=== PATIENT | male | born 1935 | race African-American/Black ===

== ENCOUNTER 2020-05-18 06:16 | Inpatient (IN) | payer MEDICARE, OTHER ==
[~2020-05-18] VITALS: Ht 182.9 cm; Wt 56.6 kg
[2020-05-18 07:43] LABS: Basophils # (auto) 0 10 ^3/uL (0-0.2); Basophils % (auto) 0.4 % (0.0-2.0); Eosinophils # (auto) 0.1 10 ^3/uL (0-0.8); Eosinophils % (auto) 0.6 % (0.0-7.0); Hematocrit 34.6 % (41.0-53.0); Hemoglobin 11.2 g/dL (13.5-17.5); Lymphocytes # (auto) 1.6 10 ^3/uL (0.4-5.4); Mean Corpuscular Hemoglobin 31.5 pg (28.0-32.0); Mean Corpuscular Hgb Conc. 32.5 g/dL (32.0-36.0); Neutrophils # (auto) 6.5 10 ^3/uL (1.6-8.6); Nucleated Red Blood Cells % 0.1 %; Platelet Count (auto) 397 10^3/uL (140-450); Red Blood Cells 3.56 10^6/uL (4.5-5.90); Red Cell Distribution Width 15.2 % (11.8-14.3); White Blood Cell 9.2 10^3/uL (4.4-10.8)
[2020-05-18 07:47] LABS: Calcium 8.8 mg/dL (8.5-10.1); Potassium 3.9 mmol/L (3.5-5.1)
[2020-05-18 07:51] LABS: BUN/Creatinine Ratio 15.7; Bilirubin, Total 0.3 mg/dL (0.2-1.0); Total Protein 7.5 g/dL (6.4-8.2)
[2020-05-18] MEDS ORDERED: cloNIDine HCL 0.1 MG TAB PO ONE (08:30)
[2020-05-18 09:40] LABS: Urine Bacteria FEW /hpf (None Seen); Urine Blood 2+ /uL (Negative); Urine Mucus FEW (None Seen); Urine Specific Gravity 1.018 (1.001-1.035); Urine WBC 235 /hpf (0 - 3)
[2020-05-18] MEDS ORDERED: GLUCAGON HYDROCHLORIDE (RDNA) 1 MG VIAL IV ONE (16:15)
[2020-05-18] MEDS: SODIUM CHLORIDE 0.9% 1,000 ML IV SCH (16:36)
[2020-05-18] MEDS ORDERED: MORPHINE SULF INJ 2 MG/ML SYRINGE 1ML IV PRN ×2 (16:45)
[2020-05-18] MEDS ORDERED: NITROGLYCERIN 0.4 MG SL TAB SL PRN (16:45)
[2020-05-18] MEDS ORDERED: GLUCAGON HYDROCHLORIDE (RDNA) 1 MG VIAL IM ONE (16:45)
[2020-05-18] MEDS ORDERED: ACETAMINOPHEN 500 MG TAB PO PRN (16:45)
[2020-05-18] MEDS ORDERED: traMADol HCL 50 MG TAB PO PRN (16:45)
[2020-05-18] MEDS ORDERED: ONDANSETRON HCL 4 MG/2 ML VIAL IV PRN (16:45)
[2020-05-18] MEDS ORDERED: cefTRIAXone 1GM/50ML D5W 50 ML IV ONE (16:45)
[2020-05-18] MEDS: DOPamine 1600MCG/ML D5W 250 ML IV SCH (18:06)
[2020-05-18] MEDS: FAMOTIDINE 20 MG TAB PO SCH (21:40)
[2020-05-19] VITALS (9 sets, daily range): BP systolic 105–123; BP diastolic 46–62
[2020-05-19] MEDS: SODIUM CHLORIDE 0.9% 1,000 ML IV SCH ×2 (00:43→08:50)
[2020-05-19 01:44] LABS: Hematocrit 34.9 % (41.0-53.0); Hemoglobin 11.5 g/dL (13.5-17.5)
[2020-05-19] MEDS: cefTRIAXone 1GM/50ML D5W 50 ML IV SCH (08:54)
[2020-05-19] MEDS: DOPamine 1600MCG/ML D5W 250 ML IV SCH (11:57)
[2020-05-19] MEDS ORDERED: hydrALAZINE HCL 10 MG TAB PO PRN (13:00)
[2020-05-19] MEDS: NIFEdipine ER 30 MG TAB PO ONE ×2 (13:28→14:35)
[2020-05-19 17:35] LABS: Hematocrit 27.8 % (41.0-53.0); Hemoglobin 9.1 g/dL (13.5-17.5)
[2020-05-19 17:41] LABS: INR 1.09 (0.9-1.15); Partial Thromboplastin Time 29.6 sec (23.0-31.2)
[2020-05-19 17:42] LABS: Albumin 2.4 g/dL (3.4-5.0); Anion Gap 7 (5-15); Blood Urea Nitrogen 17 mg/dL (7-18); Carbon Dioxide 23 mmol/L (21-32); Chloride 106 mmol/L (98-107); Glucose 104 mg/dL (74-106); Magnesium 2.2 mg/dL (1.6-2.6); Potassium 3.6 mmol/L (3.5-5.1); Sodium 136 mmol/L (136-145)
[2020-05-19 17:48] LABS: Alanine Aminotransferase 11 U/L (16-61); Alkaline Phosphatase 75 U/L (45-117); Aspartate Aminotransferase 9 U/L (15-37); BUN/Creatinine Ratio 16.5; Bilirubin, Total 0.3 mg/dL (0.2-1.0); Creatine Kinase IFCC 30 U/L (39-308); GFR African American 89 mL/min; GFR Non-African American 73 mL/min; Total Protein 6.3 g/dL (6.4-8.2)
[2020-05-19] MEDS: FAMOTIDINE 20 MG TAB PO SCH (22:00)
[2020-05-20] VITALS (33 sets, daily range): BP systolic 86–121; BP diastolic 38–61
[2020-05-20 04:19] LABS: Basophils # (auto) 0 10 ^3/uL (0-0.2); Basophils % (auto) 0.1 % (0.0-2.0); Eosinophils # (auto) 0.1 10 ^3/uL (0-0.8); Hematocrit 26.4 % (41.0-53.0); Hemoglobin 9.1 g/dL (13.5-17.5); Lymphocytes # (auto) 1.5 10 ^3/uL (0.4-5.4); Mean Corpuscular Hemoglobin 32.2 pg (28.0-32.0); Mean Corpuscular Hgb Conc. 34.4 g/dL (32.0-36.0); Mean Corpuscular Volume 93.7 fL (80.0-100.0); Monocytes # (auto) 0.8 10 ^3/uL (0-1.3); Neutrophils # (auto) 6.5 10 ^3/uL (1.6-8.6); Neutrophils % (auto) 72.9 % (37.0-80.0); Platelet Count (auto) 333 10^3/uL (140-450); Red Blood Cells 2.82 10^6/uL (4.5-5.90); Red Cell Distribution Width 14.3 % (11.8-14.3); White Blood Cell 8.9 10^3/uL (4.4-10.8)
[2020-05-20 04:42] LABS: Albumin 2.4 g/dL (3.4-5.0); Calcium 8.4 mg/dL (8.5-10.1)
[2020-05-20 04:45] LABS: BUN/Creatinine Ratio 17.7; Bilirubin, Total 0.3 mg/dL (0.2-1.0); Total Protein 6.3 g/dL (6.4-8.2)
[2020-05-20] MEDS ORDERED: DOPamine 1600MCG/ML D5W 250 ML IV SCH (06:30)
[2020-05-20] MEDS: cefTRIAXone 1GM/50ML D5W 50 ML IV SCH (09:17)
[2020-05-20] MEDS ORDERED: NIFEdipine ER 30 MG TAB PO SCH (10:00)
[2020-05-20 17:55] LABS: Urine WBC None Seen /hpf (0 - 3)
[2020-05-20 18:07] LABS: Urine Bacteria NONE SEEN /hpf (None Seen); Urine Blood Negative /uL (Negative); Urine Specific Gravity 1.013 (1.001-1.035)
[2020-05-20] MEDS ORDERED: HALO5INJ12 IJ (22:11)
[2020-05-20] MEDS ORDERED: FERR-7 PO (22:11)
[2020-05-20] MEDS ORDERED: LACT1CAP14 PO (22:11)
[2020-05-20] MEDS ORDERED: MULT-1018 PO (22:11)
[2020-05-20] MEDS ORDERED: TAMS1CAP25 PO (22:11)
[2020-05-20] MEDS ORDERED: VITA400T4 PO (22:11)
[2020-05-20] MEDS ORDERED: CRAN450T PO (22:11)
[2020-05-20] MEDS ORDERED: ASCO500T11 PO (22:11)
[2020-05-20] MEDS ORDERED: MEMA1TAB3 PO (22:11)
[2020-05-20] MEDS ORDERED: ZINC220C8 PO (22:11)
[2020-05-20] MEDS ORDERED: ACET-1156 PO (22:11)
[2020-05-20] MEDS ORDERED: FINA5TAB4 PO (22:11)
[2020-05-20] MEDS ORDERED: ONDA-144 PO (22:11)
[2020-05-20] MEDS: FAMOTIDINE 20 MG TAB PO SCH (23:18)
[2020-05-21] VITALS: BP 120/63
[2020-05-21 07:45] VITALS: BP 137/67
[2020-05-21 08:00] VITALS: BP 137/64
[2020-05-21 08:02] LABS: Basophils # (auto) 0.1 10 ^3/uL (0-0.2); Eosinophils # (auto) 0.1 10 ^3/uL (0-0.8); Eosinophils % (auto) 1.7 % (0.0-7.0); Hematocrit 28.4 % (41.0-53.0); Hemoglobin 9.7 g/dL (13.5-17.5); Lymphocytes # (auto) 1.9 10 ^3/uL (0.4-5.4); Lymphocytes % (auto) 26.1 % (10.0-50.0); Mean Corpuscular Hemoglobin 32.3 pg (28.0-32.0); Monocytes # (auto) 0.8 10 ^3/uL (0-1.3); Monocytes % (auto) 11.7 % (0.0-12.0); Neutrophils # (auto) 4.2 10 ^3/uL (1.6-8.6); Neutrophils % (auto) 59.5 % (37.0-80.0); Nucleated Red Blood Cells % 0.1 %; Platelet Count (auto) 306 10^3/uL (140-450); Red Blood Cells 2.99 10^6/uL (4.5-5.90); Red Cell Distribution Width 14.3 % (11.8-14.3); White Blood Cell 7.1 10^3/uL (4.4-10.8)
[2020-05-21 08:23] LABS: BUN/Creatinine Ratio 13.6; Calcium 8.6 mg/dL (8.5-10.1); Potassium 3.6 mmol/L (3.5-5.1)
[2020-05-21 08:48] LABS: INR 1.05 (0.9-1.15); Partial Thromboplastin Time 24.5 sec (23.0-31.2)
[2020-05-21] MEDS: cefTRIAXone 1GM/50ML D5W 50 ML IV SCH (09:29)
[2020-05-21 11:38] VITALS: BP 124/45
[2020-05-21 15:40] VITALS: BP 113/51
[2020-05-21 20:00] VITALS: BP 117/48
[2020-05-21] MEDS: FAMOTIDINE 20 MG TAB PO SCH (21:38)
[2020-05-22] VITALS: BP 117/58
[2020-05-22 03:27] LABS: Basophils # (auto) 0 10 ^3/uL (0-0.2); Basophils % (auto) 0.3 % (0.0-2.0); Eosinophils # (auto) 0 10 ^3/uL (0-0.8); Eosinophils % (auto) 0.9 % (0.0-7.0); Hematocrit 25.9 % (41.0-53.0); Hemoglobin 8.8 g/dL (13.5-17.5); Lymphocytes # (auto) 1.9 10 ^3/uL (0.4-5.4); Lymphocytes % (auto) 36.4 % (10.0-50.0); Mean Corpuscular Hemoglobin 32.1 pg (28.0-32.0); Mean Corpuscular Hgb Conc. 33.9 g/dL (32.0-36.0); Mean Corpuscular Volume 94.6 fL (80.0-100.0); Monocytes # (auto) 0.9 10 ^3/uL (0-1.3); Monocytes % (auto) 16.6 % (0.0-12.0); Neutrophils # (auto) 2.3 10 ^3/uL (1.6-8.6); Neutrophils % (auto) 45.8 % (37.0-80.0); Nucleated Red Blood Cells % 0.1 %; Platelet Count (auto) 281 10^3/uL (140-450); Red Blood Cells 2.74 10^6/uL (4.5-5.90); Red Cell Distribution Width 14.3 % (11.8-14.3); White Blood Cell 5.1 10^3/uL (4.4-10.8)
[2020-05-22 03:46] LABS: INR 1.06 (0.9-1.15); Partial Thromboplastin Time 22.2 sec (23.0-31.2)
[2020-05-22 03:48] LABS: BUN/Creatinine Ratio 16.4; Calcium 8.3 mg/dL (8.5-10.1); Potassium 3.9 mmol/L (3.5-5.1)
[2020-05-22 04:00] VITALS: BP 112/88
[2020-05-22 07:43] VITALS: BP 148/55
[2020-05-22] MEDS: cefTRIAXone 1GM/50ML D5W 50 ML IV SCH (09:00)
[2020-05-22] MEDS ORDERED: VANCOMYCIN 1GM/250ML 250 ML IV ONE (09:45)
[2020-05-22] MEDS ORDERED: fentaNYL CITRATE 100 MCG/2 ML VL ONE (12:39)
[2020-05-22] MEDS ORDERED: VANCOMYCIN HCL 1000 MG VL ONE (12:39)
[2020-05-22] MEDS ORDERED: MIDAZOLAM HCL 1MG/1ML-2 ML VIAL ONE (12:39)
[2020-05-22] MEDS ORDERED: LIDOCAINE 2%HCL (LOCAL ANESTH.) INJ 20ML MDV ONE (12:41)
[2020-05-22] MEDS ORDERED: IODIXANOL 320MG/ML 100ML BTL IV ONE (13:11)
[2020-05-22 14:22] VITALS: BP 173/98
[2020-05-22] MEDS: hydrALAZINE HCL 10 MG TAB PO PRN ×2 (15:35→21:33)
[2020-05-22 16:00] VITALS: BP 167/87
[2020-05-22 20:00] VITALS: BP 163/91
[2020-05-22] MEDS: FAMOTIDINE 20 MG TAB PO SCH (21:32)
[2020-05-23] VITALS: BP 176/79
[2020-05-23] MEDS: hydrALAZINE HCL 10 MG TAB PO PRN (03:37)
[2020-05-23 04:00] VITALS: BP 179/95
[2020-05-23 08:00] VITALS: BP 157/96
[2020-05-23] MEDS: cefTRIAXone 1GM/50ML D5W 50 ML IV SCH (09:14)
[2020-05-23 09:37] LABS: Basophils # (auto) 0 10 ^3/uL (0-0.2); Basophils % (auto) 0.6 % (0.0-2.0); Eosinophils # (auto) 0.1 10 ^3/uL (0-0.8); Eosinophils % (auto) 0.9 % (0.0-7.0); Hematocrit 34.8 % (41.0-53.0); Hemoglobin 11.6 g/dL (13.5-17.5); Lymphocytes # (auto) 1.7 10 ^3/uL (0.4-5.4); Lymphocytes % (auto) 25.1 % (10.0-50.0); Mean Corpuscular Hemoglobin 31.7 pg (28.0-32.0); Mean Corpuscular Hgb Conc. 33.3 g/dL (32.0-36.0); Monocytes # (auto) 0.9 10 ^3/uL (0-1.3); Monocytes % (auto) 12.5 % (0.0-12.0); Neutrophils # (auto) 4.2 10 ^3/uL (1.6-8.6); Neutrophils % (auto) 60.9 % (37.0-80.0); Nucleated Red Blood Cells % 0.1 %; Platelet Count (auto) 328 10^3/uL (140-450); Red Blood Cells 3.66 10^6/uL (4.5-5.90); Red Cell Distribution Width 14.2 % (11.8-14.3); White Blood Cell 6.9 10^3/uL (4.4-10.8)
[2020-05-23 10:01] LABS: BUN/Creatinine Ratio 12.1; Calcium 9.2 mg/dL (8.5-10.1); Potassium 3.7 mmol/L (3.5-5.1)
[2020-05-23] MEDS ORDERED: BENAZEPRIL HCL 10 MG TAB PO ONE (12:15)
[2020-05-23 13:08] VITALS: BP 119/71
[2020-05-23 16:42] VITALS: BP 127/73
[2020-05-23 16:59] VITALS: BP 127/73
[2020-05-24] MEDS ORDERED: BENAZEPRIL HCL 10 MG TAB PO SCH (10:00)
== END 2020-05-23 18:30 | DRG 242 ==
LOC: ER 06:16 → EDBD 06:16 → OVERFLOW 06:17 → DOU IN ICU 05-19 22:33 → TELE-WESTW 05-23 11:43
PROVIDERS: ADMIT Internal Medicine; ATTEND Internal Medicine
PROC: 0JH606Z Insertion of Pacemaker, Dual Chamber into Chest Subcutaneous Tissue and Fascia, Open Approach (ICD-10-PCS; principal; 2020-05-22)
PROC: 02H63JZ Insertion of Pacemaker Lead into Right Atrium, Percutaneous Approach (ICD-10-PCS; 2020-05-22)
PROC: 02HK3JZ Insertion of Pacemaker Lead into Right Ventricle, Percutaneous Approach (ICD-10-PCS; 2020-05-22)
DX: I44.1 Atrioventricular block, second degree (principal); N17.0 Acute kidney failure with tubular necrosis; N39.0 Urinary tract infection, site not specified; E44.1 Mild protein-calorie malnutrition; Z68.1 Body mass index [BMI] 19.9 or less, adult; I12.9 Hypertensive chronic kidney disease with stage 1 through stage 4 chronic kidney disease, or unspecified chronic kidney disease; N18.3 Chronic kidney disease, stage 3 (moderate); R31.9 Hematuria, unspecified; R00.1 Bradycardia, unspecified; E86.0 Dehydration; F03.90 Unspecified dementia, unspecified severity, without behavioral disturbance, psychotic disturbance, mood disturbance, and anxiety; T46.5X5A Adverse effect of other antihypertensive drugs, initial encounter; R29.6 Repeated falls; N40.1 Benign prostatic hyperplasia with lower urinary tract symptoms; R33.8 Other retention of urine; T78.3XXA Angioneurotic edema, initial encounter; I95.9 Hypotension, unspecified; D63.8 Anemia in other chronic diseases classified elsewhere; Z20.828 Contact with and (suspected) exposure to other viral communicable diseases
CPT/HCPCS: 33208; 36415; 71045; 80048; 80053; 81001; 82550; 83735; 83880; 84443; 84484; 85014; 85018; 85025; 85045; 85610; 85652; 85730; 87081; 87086; 87426; 93005; 93306; 99152; 99153; C1785; G0378; J0696; J2250; Q9967

== ENCOUNTER 2023-12-31 12:47 | Inpatient (IN) | payer MEDICARE, MEDICAID ==
[~2023-12-31] VITALS: Ht 182.9 cm; Wt 82.0 kg
[~2023-12-31 12:47] MED LIST: ACET-1881 PO; ASCO500T11 PO; CRAN450T PO; FERR-7 PO; FINA5TAB4 PO; HALO5INJ12 IJ; LACT1CAP14 PO; MEMA1TAB3 PO; MULT-1018 PO; ONDA-144 PO; TAMS1CAP25 PO; VITA400T4 PO; ZINC220C8 PO
[2023-12-31 13:20] VITALS: PULSE 76; RESP 16; O2SAT 93
[2023-12-31 13:49] LABS: Basophils # (auto) 0 10 ^3/uL (0-0.2); Basophils % (auto) 0.5 % (0.0-2.0); Eosinophils # (auto) 0.1 10 ^3/uL (0-0.8); Eosinophils % (auto) 2.4 % (0.0-7.0); Hematocrit 46.6 % (41.0-53.0); Lymphocytes # (auto) 1.5 10 ^3/uL (0.4-5.4); Lymphocytes % (auto) 38.2 % (10.0-50.0); Mean Corpuscular Hemoglobin 30.1 pg (28.0-32.0); Mean Corpuscular Hgb Conc. 32.1 g/dL (32.0-36.0); Mean Corpuscular Volume 93.8 fL (80.0-100.0); Monocytes # (auto) 0.5 10 ^3/uL (0-1.3); Monocytes % (auto) 13.1 % (0.0-12.0); Neutrophils # (auto) 1.8 10 ^3/uL (1.6-8.6); Neutrophils % (auto) 45.8 % (37.0-80.0); Nucleated Red Blood Cells % 0.4 %; Red Blood Cells 4.97 10^6/uL (4.5-5.90); Red Cell Distribution Width 14.8 % (11.8-14.3); White Blood Cell 3.9 10^3/uL (4.4-10.8)
[2023-12-31 13:57] LABS: Alanine Aminotransferase 15 U/L (7-40); Albumin 3.8 g/dL (3.2-4.8); Alkaline Phosphatase 88 U/L (46-116); Anion Gap 6 (5-15); Aspartate Aminotransferase 21 U/L (13-40); BUN/Creatinine Ratio 22.6 (10.0-20.0); Blood Urea Nitrogen 26 mg/dL (9-23); Calcium 9.6 mg/dL (8.7-10.4); Carbon Dioxide 23 mmol/L (20-30); Chloride 111 mmol/L (98-107); Glucose 83 mg/dL (74-106); Potassium 4.8 mmol/L (3.5-5.1); Sodium 140 mmol/L (136-145)
[2023-12-31 13:58] LABS: Bilirubin, Total 0.3 mg/dL (0.2-1.0); Total Protein 6.9 g/dL (5.7-8.2)
[2023-12-31 15:26] LABS: Urine Bacteria None Seen /hpf (None Seen)
[2023-12-31 15:39] LABS: Urine Blood Negative /uL (Negative); Urine Clarity Clear (Clear); Urine Color Yellow (Yellow); Urine Mucus FEW (None Seen); Urine Protein, UAD TRACE (Negative); Urine Specific Gravity 1.024 (1.001-1.035); Urine Urobilinogen Normal (Negative); Urine WBC 1 /hpf (0 - 3); Urine pH 5.5 (5.0-9.0)
[2023-12-31] MEDS: LACTATED RINGER'S 1,000 ML IV ONE (15:51)
[2023-12-31] MEDS ORDERED: ACETAMINOPHEN 325 MG TAB PO PRN (16:30)
[2023-12-31] MEDS: SODIUM CHLORIDE 0.9% 1,000 ML IV SCH (16:30)
[2023-12-31 18:23] VITALS: BP 140/81; PULSE 87; TEMP 97.2; O2SAT 96
[2023-12-31 20:00] VITALS: RESP 16; O2SAT 99
[2023-12-31 21:00] VITALS: BP 140/89; PULSE 93; RESP 18; TEMP 97.5; O2SAT 96
[2024-01-01] VITALS (7 sets, daily range): BP systolic 97–133; BP diastolic 58–85; PULSE 73–93; RESP 16–21; TEMP 97.4–98.4; O2SAT 93–100
[2024-01-01 04:53] LABS: Urine Bacteria None Seen /hpf (None Seen)
[2024-01-01 05:23] LABS: Urine Blood Negative /uL (Negative); Urine Clarity Clear (Clear); Urine Color Light-Yellow (Yellow); Urine Protein, UAD Negative (Negative); Urine Urobilinogen Normal (Negative); Urine WBC 1 /hpf (0 - 3); Urine pH 5.5 (5.0-9.0)
[2024-01-01] MEDS: ENOXAPARIN SOD 40 MG/0.4 ML SYRINGE SC SCH (09:02)
[2024-01-01 09:47] LABS: Basophils # (auto) 0 10 ^3/uL (0-0.2); Basophils % (auto) 0.6 % (0.0-2.0); Eosinophils # (auto) 0.1 10 ^3/uL (0-0.8); Eosinophils % (auto) 3.7 % (0.0-7.0); Hematocrit 40.9 % (41.0-53.0); Hemoglobin 13.2 g/dL (13.5-17.5); Lymphocytes # (auto) 1.2 10 ^3/uL (0.4-5.4); Lymphocytes % (auto) 41.6 % (10.0-50.0); Mean Corpuscular Hemoglobin 30.1 pg (28.0-32.0); Mean Corpuscular Hgb Conc. 32.3 g/dL (32.0-36.0); Monocytes # (auto) 0.4 10 ^3/uL (0-1.3); Monocytes % (auto) 12.4 % (0.0-12.0); Neutrophils # (auto) 1.2 10 ^3/uL (1.6-8.6); Neutrophils % (auto) 41.7 % (37.0-80.0); Nucleated Red Blood Cells % 0.3 %; Red Cell Distribution Width 14.7 % (11.8-14.3)
[2024-01-01 10:02] LABS: Alkaline Phosphatase 75 U/L (46-116); Anion Gap 4 (5-15); Aspartate Aminotransferase 23 U/L (13-40); BUN/Creatinine Ratio 14.5 (10.0-20.0); Blood Urea Nitrogen 17 mg/dL (9-23); Calcium 9.3 mg/dL (8.5-10.1); Carbon Dioxide 26 mmol/L (20-30); Chloride 111 mmol/L (98-107); Glucose 117 mg/dL (74-106); Potassium 4.4 mmol/L (3.5-5.1); Sodium 141 mmol/L (136-145)
[2024-01-01 10:03] LABS: Albumin 3.3 g/dL (3.2-4.8); Bilirubin, Total 0.5 mg/dL (0.2-1.0); Total Protein 6.3 g/dL (5.7-8.2)
[2024-01-01 10:06] LABS: Alanine Aminotransferase < 9 U/L (7-40)
[2024-01-02] VITALS (7 sets, daily range): BP systolic 114–132; BP diastolic 67–83; PULSE 72–86; RESP 16–20; TEMP 97.3–97.6; O2SAT 96–100
[2024-01-03] VITALS (8 sets, daily range): BP systolic 85–118; BP diastolic 51–80; PULSE 62–81; RESP 16–20; TEMP 97.4–97.9; O2SAT 94–98
[2024-01-03] MEDS: TAMSULOSIN HYDROCHLORIDE 0.4 MG CAP PO SCH (17:49)
[2024-01-03] MEDS: MEMANTINE HCL 5 MG TAB PO SCH (21:30)
[2024-01-04 05:00] VITALS: BP 110/67; PULSE 81; RESP 16; TEMP 97.6; O2SAT 96
[2024-01-04 05:17] LABS: Basophils # (auto) 0 10 ^3/uL (0-0.2); Basophils % (auto) 0.6 % (0.0-2.0); Eosinophils # (auto) 0.1 10 ^3/uL (0-0.8); Eosinophils % (auto) 1.9 % (0.0-7.0); Hematocrit 41.8 % (41.0-53.0); Hemoglobin 13.5 g/dL (13.5-17.5); Lymphocytes # (auto) 1.6 10 ^3/uL (0.4-5.4); Lymphocytes % (auto) 34.2 % (10.0-50.0); Mean Corpuscular Hemoglobin 29.8 pg (28.0-32.0); Mean Corpuscular Hgb Conc. 32.3 g/dL (32.0-36.0); Mean Corpuscular Volume 92.2 fL (80.0-100.0); Monocytes # (auto) 0.3 10 ^3/uL (0-1.3); Monocytes % (auto) 7.2 % (0.0-12.0); Neutrophils # (auto) 2.6 10 ^3/uL (1.6-8.6); Neutrophils % (auto) 56.1 % (37.0-80.0); Nucleated Red Blood Cells % 0.6 %; Red Blood Cells 4.53 10^6/uL (4.5-5.90); Red Cell Distribution Width 14.4 % (11.8-14.3); White Blood Cell 4.7 10^3/uL (4.4-10.8)
[2024-01-04 05:27] LABS: Anion Gap 8 (5-15); Carbon Dioxide 24 mmol/L (20-30); Chloride 108 mmol/L (98-107); Potassium 4.1 mmol/L (3.5-5.1); Sodium 140 mmol/L (136-145)
[2024-01-04 05:29] LABS: Calcium 9.6 mg/dL (8.5-10.1)
[2024-01-04 05:33] LABS: BUN/Creatinine Ratio 17.7 (10.0-20.0); Blood Urea Nitrogen 23 mg/dL (9-23); Glucose 94 mg/dL (74-106)
[2024-01-04 09:00] VITALS: BP 100/46; PULSE 91; RESP 14; TEMP 97.6; O2SAT 98
[2024-01-04] MEDS: FINASTERIDE 5 MG TAB PO SCH (09:54)
[2024-01-04 12:44] VITALS: BP 96/59; PULSE 77; RESP 16; TEMP 97.3; O2SAT 95
[2024-01-04 17:00] VITALS: BP 103/66; PULSE 73; RESP 16; TEMP 97.3; O2SAT 100
== END 2024-01-04 17:48 | DRG 640 ==
LOC: ER 12:47 → EDBD 12:47 → OVERFLOW 16:32 → UNDOADMIN 16:32 → ER 16:32 → WEST WING 16:32
PROVIDERS: ADMIT Nurse Practitioner Family; ATTEND Internal Medicine
DX: R62.7 Adult failure to thrive (principal); G92.8 Other toxic encephalopathy; I10 Essential (primary) hypertension; F03.90 Unspecified dementia, unspecified severity, without behavioral disturbance, psychotic disturbance, mood disturbance, and anxiety; Z95.0 Presence of cardiac pacemaker; Z68.24 Body mass index [BMI] 24.0-24.9, adult; Z79.899 Other long term (current) drug therapy
CPT/HCPCS: 36415; 70450; 71045; 80048; 80053; 81001; 82607; 83735; 84443; 84484; 85025; 87081; 93005; 96360; 96361; 97110; 97116; 97163; G0378